=== PATIENT | female | born 1990 | race Two or more races ===

== ENCOUNTER 2024-07-09 05:26 | Emergency (ER) | payer OTHER ==
[~2024-07-09] VITALS: Ht 162.6 cm; Wt 93.0 kg
[2024-07-09 05:29] VITALS: BP 147/81; O2SAT 98
[2024-07-09] MEDS ORDERED: KETOROLAC TROMETHAMINE 10 MG TABLET PO STA (05:36)
[2024-07-09] MEDS ORDERED: KETO10TA2 PO (07:35)
== END 2024-07-09 09:19 ==
LOC: ER 05:26
DX: S93.401A Sprain of unspecified ligament of right ankle, initial encounter (principal); S93.601A Unspecified sprain of right foot, initial encounter; X58.XXXA Exposure to other specified factors, initial encounter; Y93.89 Activity, other specified; Y92.59 Other trade areas as the place of occurrence of the external cause; Y99.9 Unspecified external cause status; Z88.0 Allergy status to penicillin